=== PATIENT | female | born 1940 ===

== ENCOUNTER → 2023-07-06 | Outpatient (CLI) | payer MEDICAID ==
[2023-07-06 10:19] LABS: Basophils # (auto) 0 10 ^3/uL (0-0.2); Basophils % (auto) 0.5 % (0.0-2.0); Eosinophils # (auto) 0.1 10 ^3/uL (0-0.8); Eosinophils % (auto) 1.9 % (0.0-7.0); Hematocrit 39.3 % (36.0-46.0); Hemoglobin 12.8 g/dL (12.2-16.2); Mean Corpuscular Hemoglobin 29.8 pg (28.0-32.0); Mean Corpuscular Hgb Conc. 32.6 g/dL (32.0-36.0); Mean Corpuscular Volume 91.3 fL (80.0-100.0); Monocytes # (auto) 0.5 10 ^3/uL (0-1.3); Monocytes % (auto) 7.9 % (0.0-12.0); Neutrophils # (auto) 3.6 10 ^3/uL (1.6-8.6); Neutrophils % (auto) 57.7 % (37.0-80.0); Nucleated Red Blood Cells % 0.1 %; Red Cell Distribution Width 13.9 % (11.8-14.3); White Blood Cell 6.2 10^3/uL (4.4-10.8)
[2023-07-06 11:03] LABS: Urine Bacteria FEW /hpf (None Seen); Urine Blood Negative /uL (Negative); Urine Clarity Clear (Clear); Urine Color STRAW (Yellow); Urine Protein, UAD TRACE (Negative); Urine Specific Gravity 1.017 (1.001-1.035); Urine Urobilinogen Normal (Negative); Urine WBC 4 /hpf (0 - 5)
[2023-07-06 11:05] LABS: Albumin 4.4 g/dL (3.2-4.8); Alkaline Phosphatase 89 U/L (46-116); Anion Gap 10 (5-15); Aspartate Aminotransferase 10 U/L (13-40); Blood Urea Nitrogen 30 mg/dL (9-23); Calcium 9.5 mg/dL (8.5-10.1); Carbon Dioxide 23 mmol/L (20-30); Chloride 107 mmol/L (98-107); Glucose 157 mg/dL (74-106); LDL Cholesterol 107 mg/dL (< 100); Potassium 4.3 mmol/L (3.5-5.1); Sodium 140 mmol/L (136-145); Triglycerides 153 mg/dL (< 150)
[2023-07-06 11:06] LABS: Bilirubin, Total 0.5 mg/dL (0.2-1.0); Cholesterol 165 mg/dL (< 200); HDL Cholesterol 46 mg/dL (40-59); Total Protein 7.3 g/dL (5.7-8.2)
[2023-07-06 11:08] LABS: Alanine Aminotransferase 9 U/L (7-40)
[2023-07-06 11:15] LABS: Free T4 (Free Thyroxine) 0.97 ng/dL (0.89-1.76)
== END | disposition home or self-care (01) ==
LOC: LAB 09:39
PROVIDERS: ATTEND Internal Medicine
DX: I10 Essential (primary) hypertension (principal); E78.5 Hyperlipidemia, unspecified
CPT/HCPCS: 36415; 80053; 80061; 81001; 82043; 82306; 82607; 83036; 84439; 84443; 85025